=== PATIENT | female | born 1980 | race Caucasian/White ===

== ENCOUNTER 2016-07-13 19:12 | Emergency (ER) | payer SELFPAY ==
[2016-07-13] MEDS ORDERED: HYDROCODONE/APAP 5/325MG TABLET PO ONE (21:51)
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
== END 2016-07-13 22:43 | disposition home or self-care (01) ==
LOC: ER 19:12
DX: S09.90XA Unspecified injury of head, initial encounter (principal); S80.12XA Contusion of left lower leg, initial encounter; V49.88XA Car occupant (driver) (passenger) injured in other specified transport accidents, initial encounter; Y92.410 Unspecified street and highway as the place of occurrence of the external cause
CPT/HCPCS: 70450; 71020; 99283